=== PATIENT | male | born 1950 | race Native Hawaiian/Other Pacific Islander ===

== ENCOUNTER 2020-05-01 06:23 | Observation (INO) | payer OTHER ==
[2020-05-01] MEDS ORDERED: ASPIRIN 325 MG ENTERIC COATED TABLET (FP) PO ONE (07:49)
[2020-05-01] MEDS ORDERED: ASPIRIN 325 MG ENTERIC COATED TABLET (FP) ONE (08:01)
[2020-05-01 08:16] LABS: BASO % 0.4 % (0-2.0); EOS % 1.2 % (0-4.5); HEMATOCRIT 46.7 % (35.4-49); HEMOGLOBIN 15.6 GM/dL (11.7-16.9); LYMPH % 21.2 % (8-40); MCH 30.8 pg (25.7-33.7); MCHC 33.4 g/dl (32.0-35.9); MEAN CELL VOLUME 92.3 fl (80-96); MEAN PLT VOLUME 9.6 fl (7.5-11.1); MONO % 10.6 % (3.8-10.2); NEUT % 66.6 % (42.8-82.8); PLATELET COUNT 230 K/MM3 (134-434); RBC 5.06 M/mm3 (4.00-5.60); RDW 13.3 % (11.9-15.9); WHITE BLOOD COUNT 8.2 K/mm3 (4.0-10.0)
[2020-05-01 08:20] LABS: INR 0.93 (0.83-1.09); PROTHROMBIN TIME (PATIENT) 11.3 SEC (9.7-13.0)
[2020-05-01 08:30] LABS: ALBUMIN 3.8 g/dl (3.4-5.0); BLOOD UREA NITROGEN 13.4 mg/dL (7-18); CALCIUM 9.3 mg/dL (8.5-10.1)
[2020-05-01 08:34] LABS: CREATININE 0.9 mg/dL (0.55-1.3)
[2020-05-01 08:35] LABS: BILIRUBIN,TOTAL 0.5 mg/dL (0.2-1); TOT PROT 7.1 g/dl (6.4-8.2)
[2020-05-01] MEDS ORDERED: NITROGLYCERIN 2% OINTMENT - 1GM PACKET TD ONE ×2 (09:07→09:17)
[2020-05-01] MEDS: PANTOPRAZOLE 40 MG TABLET PO SCH (11:30)
[2020-05-01] MEDS: HYDROCHLOROTHIAZIDE 25 MG TABLET (FP) PO SCH (11:35)
[2020-05-01] MEDS: ASPIRIN COATED 81 MG TABLET.EC PO SCH (11:36)
[2020-05-01] MEDS ORDERED: CARVEDILOL 3.125 MG TABLET (FP) ONE ×2 (11:39→22:32)
[2020-05-01] MEDS ORDERED: PANTOPRAZOLE 40 MG TABLET ONE (11:39)
[2020-05-01] MEDS ORDERED: ENOXAPARIN NA (PORCINE) 40 MG/0.4 ML DISP.SYRIN SQ ONE (11:40)
[2020-05-01] MEDS: CARVEDILOL 3.125 MG TABLET (FP) PO SCH ×2 (11:40→22:44)
[2020-05-01] MEDS: ENOXAPARIN NA (PORCINE) 40 MG/0.4 ML DISP.SYRIN SQ SCH (11:40)
[2020-05-01] MEDS ORDERED: ACETAMINOPHEN 325 MG TABLET (FP) ONE (17:47)
[2020-05-01] MEDS ORDERED: ACETAMINOPHEN 325 MG TABLET (FP) PO ONE (18:00)
[2020-05-01] MEDS ORDERED: ATORVASTATIN CA 40 MG TABLET (FP) PO SCH (22:00)
[2020-05-01] MEDS ORDERED: ATORVASTATIN CA 40 MG TABLET (FP) ONE (22:32)
[2020-05-02 02:54] VITALS: BMI 25.8
[2020-05-02] MEDS ORDERED: ACETAMINOPHEN 325 MG TABLET (FP) PO PRN (03:20)
[2020-05-02 08:17] LABS: HEMOGLOBIN 15.2 GM/dL (11.7-16.9); MCH 30.1 pg (25.7-33.7); MCHC 32.3 g/dl (32.0-35.9); MEAN CELL VOLUME 93.2 fl (80-96); MEAN PLT VOLUME 10.1 fl (7.5-11.1); PLATELET COUNT 227 K/MM3 (134-434); RBC 5.04 M/mm3 (4.00-5.60); RDW 13.5 % (11.9-15.9); WHITE BLOOD COUNT 7.9 K/mm3 (4.0-10.0)
[2020-05-02 08:36] LABS: CALCIUM 9.3 mg/dL (8.5-10.1)
[2020-05-02 08:37] LABS: ALBUMIN 3.6 g/dl (3.4-5.0); BLOOD UREA NITROGEN 13.3 mg/dL (7-18); MAGNESIUM 2.1 mg/dL (1.8-2.4)
[2020-05-02 08:40] LABS: CREATININE 0.8 mg/dL (0.55-1.3)
[2020-05-02 08:41] LABS: BILIRUBIN,TOTAL 0.6 mg/dL (0.2-1)
[2020-05-02 08:42] LABS: TOT PROT 6.8 g/dl (6.4-8.2)
[2020-05-02] MEDS: CARVEDILOL 3.125 MG TABLET (FP) PO SCH (09:32)
[2020-05-02] MEDS: ASPIRIN COATED 81 MG TABLET.EC PO SCH (09:58)
[2020-05-02] MEDS: PANTOPRAZOLE 40 MG TABLET PO SCH (09:58)
[2020-05-02] MEDS: HYDROCHLOROTHIAZIDE 25 MG TABLET (FP) PO SCH (09:58)
[2020-05-02] MEDS: ENOXAPARIN NA (PORCINE) 40 MG/0.4 ML DISP.SYRIN SQ SCH (09:59)
[2020-05-02 17:53] VITALS: BP 118/70; PULSE 70; TEMP 98.6
== END 2020-05-02 19:40 | disposition home or self-care (01) ==
LOC: JER 06:23 → JERBED 09:23 → J6WEST-2 05-02 02:58
PROVIDERS: ADMIT Internal Medicine; ATTEND Internal Medicine
PROC: 3E023GC Introduction of Other Therapeutic Substance into Muscle, Percutaneous Approach (ICD-10-PCS; principal; 2020-05-01)
DX: I21.4 Non-ST elevation (NSTEMI) myocardial infarction (principal); R79.89 Other specified abnormal findings of blood chemistry; J45.909 Unspecified asthma, uncomplicated; E78.5 Hyperlipidemia, unspecified; I25.10 Atherosclerotic heart disease of native coronary artery without angina pectoris; I11.9 Hypertensive heart disease without heart failure; I24.9 Acute ischemic heart disease, unspecified; Z98.49 Cataract extraction status, unspecified eye; R07.89 Other chest pain; K59.00 Constipation, unspecified; K21.9 Gastro-esophageal reflux disease without esophagitis; R42 Dizziness and giddiness; Z29.9 Encounter for prophylactic measures, unspecified
CPT/HCPCS: 36415; 71045-TC-FY; 80053; 80061; 82550; 83036; 83721; 83735; 84484; 85025; 85027; 85610; 93005; 93010; 93351; 96372; 99285-25; C9803; G0378; U0003

== ENCOUNTER 2020-06-13 13:28 | Emergency (ER) | payer OTHER ==
[2020-06-13 14:30] VITALS: PULSE 77; TEMP 98.2; BMI 24.3
[2020-06-13] MEDS ORDERED: ACETAMINOPHEN 325 MG TABLET (FP) PO ONE (15:01)
[2020-06-13 15:09] LABS: BASO % 0.4 % (0-2.0); EOS % 0.6 % (0-4.5); HEMATOCRIT 50.1 % (35.4-49); HEMOGLOBIN 16.7 GM/dL (11.7-16.9); LYMPH % 26.6 % (8-40); MCH 30.6 pg (25.7-33.7); MCHC 33.4 g/dl (32.0-35.9); MEAN CELL VOLUME 91.6 fl (80-96); MEAN PLT VOLUME 9.5 fl (7.5-11.1); MONO % 8.6 % (3.8-10.2); NEUT % 63.8 % (42.8-82.8); PLATELET COUNT 251 K/MM3 (134-434); RBC 5.47 M/mm3 (4.00-5.60); RDW 13.6 % (11.9-15.9); WHITE BLOOD COUNT 8.3 K/mm3 (4.0-10.0)
[2020-06-13] MEDS ORDERED: ACETAMINOPHEN 325 MG TABLET (FP) ONE (15:26)
[2020-06-13 15:34] LABS: POTASSIUM 3.8 mmol/L (3.5-5.1)
[2020-06-13 15:37] LABS: ALBUMIN 4.1 g/dl (3.4-5.0); BLOOD UREA NITROGEN 12.6 mg/dL (7-18); CALCIUM 9.5 mg/dL (8.5-10.1)
[2020-06-13 15:40] LABS: CREATININE 0.9 mg/dL (0.55-1.3)
[2020-06-13 15:42] LABS: BILIRUBIN,TOTAL 0.8 mg/dL (0.2-1); TOT PROT 7.4 g/dl (6.4-8.2)
[2020-06-13 17:51] VITALS: BP 141/75
[2020-06-13 21:04] LABS: PH,URINE >= 9.0 (5.0-8.0); URINE APPEARANCE CLEAR; URINE BILIRUBIN NEGATIVE (NEGATIVE); URINE COLOR YELLOW; URINE GLUCOSE (UA) NEGATIVE (NEGATIVE); URINE KETONE NEGATIVE (NEGATIVE); URINE LEUK ESTERASE NEGATIVE (NEGATIVE); URINE NITRITE NEGATIVE (NEGATIVE); URINE PROTEIN NEGATIVE (NEGATIVE); URINE UROBILINOGEN 0.2 mg/dL (0.2-1.0)
== END 2020-06-13 17:51 | disposition home or self-care (01) ==
LOC: JER 13:28
DX: R68.89 Other general symptoms and signs (principal)
CPT/HCPCS: 36415; 70450-TC; 71046-TC-FY; 80053; 81003; 82550; 82553; 84484; 85025; 87086; 99285-25

== ENCOUNTER 2024-04-27 18:57 | Observation (INO) | payer OTHER ==
[2024-04-27] MEDS ORDERED: ACETAMINOPHEN 325 MG TABLET (FP) ONE (20:38)
[2024-04-27] MEDS ORDERED: FAMOTIDINE 20 MG TABLET ONE (20:38)
[2024-04-27] MEDS: FAMOTIDINE 20 MG TABLET PO ONE (20:51)
[2024-04-27] MEDS: ACETAMINOPHEN 325 MG TABLET (FP) PO ONE (20:56)
[2024-04-27] MEDS: ACETAMINOPHEN 500 MG TABLET (FP) PO ONE (20:56)
[2024-04-27 21:13] LABS: POTASSIUM 3.6 mmol/L (3.5-5.1)
[2024-04-27 21:15] LABS: ALBUMIN 3.9 g/dl (3.4-5.0); BASO % 0.6 % (0-2.0); LYMPH % 32.4 % (8-40); MCH 29.9 pg (25.7-33.7); MCHC 31.9 g/dl (32.0-35.9); MEAN CELL VOLUME 93.9 fl (80-96); MEAN PLT VOLUME 9.2 fl (7.5-11.1); MONO % 10.6 % (3.8-10.2); NEUT % 54.4 % (42.8-82.8); PLATELET COUNT 237 10^3/uL (134-434); RDW 13.4 % (11.9-15.9); WHITE BLOOD COUNT 6.4 K/mm3 (4.0-10.0)
[2024-04-27 21:16] LABS: BLOOD UREA NITROGEN 13.2 mg/dL (7-18); MAGNESIUM 2.3 mg/dL (1.8-2.4)
[2024-04-27 21:19] LABS: CREATININE 0.8 mg/dL (0.55-1.3)
[2024-04-27 21:20] LABS: BILIRUBIN,TOTAL 0.6 mg/dL (0.2-1)
[2024-04-27 22:49] LABS: HIV INTERPRETATION NEGATIVE (NEGATIVE)
[2024-04-28] MEDS: ALBUTEROL SO4 HFA INHALER IH SCH (04:29)
[2024-04-28 04:43] LABS: PH,URINE 7.5 (5.0-8.0); URINE APPEARANCE CLEAR; URINE BILIRUBIN NEGATIVE (NEGATIVE); URINE COLOR YELLOW; URINE GLUCOSE (UA) NEGATIVE (NEGATIVE); URINE KETONE TRACE (NEGATIVE); URINE LEUK ESTERASE NEGATIVE (NEGATIVE); URINE NITRITE NEGATIVE (NEGATIVE); URINE PROTEIN NEGATIVE (NEGATIVE); URINE UROBILINOGEN 0.2 mg/dL (0.2-1.0)
[2024-04-28 04:59] LABS: COCAINE, UR NEGATIVE (NEGATIVE); METHADONE, UR NEGATIVE (NEGATIVE); OPIATES, URI NEGATIVE (NEGATIVE); URINE BARBITURATES NEGATIVE (NEGATIVE)
[2024-04-28 05:00] LABS: PHENCYCLIDINE,URINE NEGATIVE (NEGATIVE)
[2024-04-28 05:16] LABS: URINE AMPHETAMINES NEGATIVE (NEGATIVE); URINE BENZODIAZEPINES NEGATIVE (NEGATIVE)
[2024-04-28 05:21] VITALS: BMI 25.5
[2024-04-28 08:24] LABS: BASO % 0.7 % (0-2.0); EOS % 1.2 % (0-4.5); HEMATOCRIT 46.6 % (35.4-49); HEMOGLOBIN 15.7 GM/dL (11.7-16.9); LYMPH % 30.8 % (8-40); MCH 31.1 pg (25.7-33.7); MCHC 33.7 g/dl (32.0-35.9); MEAN CELL VOLUME 92.3 fl (80-96); MEAN PLT VOLUME 9.5 fl (7.5-11.1); MONO % 9.6 % (3.8-10.2); NEUT % 57.7 % (42.8-82.8); PLATELET COUNT 223 10^3/uL (134-434); RBC 5.05 M/mm3 (4.00-5.60); RDW 13.6 % (11.9-15.9); WHITE BLOOD COUNT 5.7 K/mm3 (4.0-10.0)
[2024-04-28 08:32] LABS: POTASSIUM 3.9 mmol/L (3.5-5.1)
[2024-04-28 08:37] LABS: ALBUMIN 3.6 g/dl (3.4-5.0); BLOOD UREA NITROGEN 9.7 mg/dL (7-18)
[2024-04-28 08:38] LABS: CALCIUM 8.8 mg/dL (8.5-10.1); MAGNESIUM 2.2 mg/dL (1.8-2.4)
[2024-04-28 08:39] LABS: CREATININE 0.7 mg/dL (0.55-1.3)
[2024-04-28 08:40] LABS: PHOSPHOROUS 2.1 mg/dL (2.5-4.9)
[2024-04-28 08:41] LABS: BILIRUBIN,TOTAL 0.9 mg/dL (0.2-1); TOT PROT 6.7 g/dl (6.4-8.2)
[2024-04-28] MEDS: ASPIRIN COATED 81 MG TABLET.EC PO SCH (10:19)
[2024-04-28] MEDS: TAMSULOSIN HCL 0.4 MG CAP PO SCH (10:19)
[2024-04-28] MEDS: HYDROCHLOROTHIAZIDE 25 MG TABLET (FP) PO SCH (10:19)
[2024-04-28] MEDS: ENOXAPARIN NA (PORCINE) 40 MG/0.4 ML DISP.SYRIN SQ SCH (10:19)
[2024-04-28] MEDS: CARVEDILOL 3.125 MG TABLET (FP) PO SCH (10:19)
[2024-04-28] MEDS: SACUBITRIL/VALSARTAN 24 MG-26 MG TABLET PO SCH (21:25)
[2024-04-28] MEDS: ATORVASTATIN CA 40 MG TABLET (FP) PO SCH (21:25)
[2024-04-29 08:57] LABS: EOS % 2.5 % (0-4.5); HEMATOCRIT 51.4 % (35.4-49); HEMOGLOBIN 16.6 GM/dL (11.7-16.9); LYMPH % 26.4 % (8-40); MCH 30.2 pg (25.7-33.7); MCHC 32.2 g/dl (32.0-35.9); MEAN CELL VOLUME 93.8 fl (80-96); MEAN PLT VOLUME 9.6 fl (7.5-11.1); MONO % 13.3 % (3.8-10.2); NEUT % 56.8 % (42.8-82.8); PLATELET COUNT 244 10^3/uL (134-434); RBC 5.48 M/mm3 (4.00-5.60); RDW 13.7 % (11.9-15.9); WHITE BLOOD COUNT 6.7 K/mm3 (4.0-10.0)
[2024-04-29 09:20] LABS: POTASSIUM 3.6 mmol/L (3.5-5.1)
[2024-04-29 09:25] LABS: ALBUMIN 3.8 g/dl (3.4-5.0); CALCIUM 9.2 mg/dL (8.5-10.1)
[2024-04-29] MEDS: FUROSEMIDE 20 MG TABLET (FP) PO SCH (09:25)
[2024-04-29 09:26] LABS: BLOOD UREA NITROGEN 10.7 mg/dL (7-18); MAGNESIUM 2.4 mg/dL (1.8-2.4)
[2024-04-29 09:29] LABS: CREATININE 0.8 mg/dL (0.55-1.3); PHOSPHOROUS 2.3 mg/dL (2.5-4.9)
[2024-04-29 09:30] LABS: BILIRUBIN,TOTAL 0.5 mg/dL (0.2-1); TOT PROT 7.1 g/dl (6.4-8.2)
[2024-04-29] MEDS: EMPAGLIFLOZIN (JARDIANCE) 10 MG TABLET PO SCH (16:23)
[2024-04-30] MEDS: EMPAGLIFLOZIN (JARDIANCE) 10 MG TABLET PO SCH (06:57)
[2024-04-30 10:34] VITALS: RESP 18
[2024-04-30 14:19] VITALS: BP 122/76; PULSE 88; TEMP 98.6
== END 2024-04-30 14:27 | disposition home or self-care (01) ==
LOC: JER 18:57 → JERBED 04-28 00:33 → J4W 04-28 05:05
PROVIDERS: ADMIT Internal Medicine; ATTEND Internal Medicine
DX: I50.20 Unspecified systolic (congestive) heart failure (principal); I25.10 Atherosclerotic heart disease of native coronary artery without angina pectoris; I11.9 Hypertensive heart disease without heart failure; J45.909 Unspecified asthma, uncomplicated; K21.9 Gastro-esophageal reflux disease without esophagitis; E78.5 Hyperlipidemia, unspecified; K44.9 Diaphragmatic hernia without obstruction or gangrene; R77.8 Other specified abnormalities of plasma proteins; Z85.038 Personal history of other malignant neoplasm of large intestine; Z85.46 Personal history of malignant neoplasm of prostate
CPT/HCPCS: 0241U-QW; 36415; 71045-TC-FY; 80053; 80061; 80307; 81003; 83036; 83735; 84100; 84439; 84443; 84484; 85025; 86803; 87389; 93005; 93010; 93306-TC; 99285-25; G0378